=== PATIENT | male | born 1945 | race Caucasian/White ===

== ENCOUNTER 2020-03-10 13:30 | Outpatient (CLI) | payer OTHER, SELFPAY ==
--- NOTE | 2020-03-10 13:37 | MR_ITS ---
WS: [id number] INDICATION: Prostate evaluation TECHNIQUE: MRI the pelvis without and with gadolinium enhancement with attention to the prostate. Cor onal T1 STIR and post gadolinium imaging. Axial T1 and T2 and postgadolinium imaging. Sagittal T2 and postgadolinium imaging with fat saturation technique. FINDINGS: Markedly enlarged prostate measuring 5.8 cm x 7.1 x 6.6 cm AP by transverse by craniocaudal . Heterogeneous enhancement with associated T2 hyperintense cystic change within the prostate. Prosta te appears well encapsulated. Seminal vesicles appear normal. Indentation on the bladder with evidenc e of bladder outlet obstruction. Diffuse thickening of the bladder wall. No pelvic lymphadenopathy. No inguinal lymphadenopathy. Normal bone marrow signal in the bony pelvis and sacrum. Normal perirectal fat. No iliac chain lymphadenopathy. Normal bone marrow signal in the s acrum and lower lumbar spine. MR/MR pelvis wo/w con [id number] IMPRESSION: 1. Markedly enlarged heterogeneously enhancing prostate measuring 5.8 x 7.1 x 6.6 cm. Recommend correlation for PSA. Findings suspicious for hyperplasia/neop lasia. 2. Evidence of bladder outlet obstruction with diffuse bladder wall thickening . 3. No perirectal, pelvic or inguinal lymphadenopathy. 4. Normal bone marrow signal in the visualized bony structures.
== END 2020-03-10 13:31 | disposition home or self-care (01) ==
LOC: RADWPI 13:36
PROVIDERS: Visit Provider Family Medicine
DX: Z01.89 Encounter for other specified special examinations (principal); N40.0 Benign prostatic hyperplasia without lower urinary tract symptoms
CPT/HCPCS: 72197; A9579

== ENCOUNTER 2021-08-12 09:55 | Outpatient (CLI) | payer OTHER, SELFPAY ==
--- NOTE | 2021-08-12 10:07 | CT_ITS ---
WS: [id number] CT ABDOMEN AND PELVIS NONCONTRAST HISTORY: PELVIC and PERINEAL PAIN TECHNIQUE: Imaging performed through the abdomen and pelvis. Coronal and sagittal reformats are submi tted. All CT scans at [facility] use at least one of these dose optimization techniques: auto mated exposure control; mA and/or kV adjustment per patient size (includes targeted exams where dose is matched to clinical indication); or iterative reconstruction. DLP: 1139.48 mGy.cm COMPARISON: MRI 03/10/2020 There is motion artifact due to breathing on this examination. Lower thorax: Pulmonary hyperexpansion. Benign granuloma LEFT lower lobe. Heart is moderately enlarge d. Small hiatal hernia. Liver: Normal size and attenuation on this unenhanced study. No bile duct dilatation is appreciated. Gallbladder: Normal gallbladder. Pancreas: Mild atrophy of the pancreas. Suspicious for 10 mm cystic nodule involving the pancreatic t ail. This cannot be further evaluated on this examination without IV contrast. No adjacent inflammati on. Spleen: Normal. Adrenal glands: Normal. No mass. Right kidney: Normal size kidney. Small extrarenal pelvis. No obstruction. Left kidney: Normal size kidney. No obstruction. Very small extrarenal pelvis. Aorta: Mild atherosclerosis abdominal aorta with no aneurysm. No free fluid, intraperitoneal air or significant lymphadenopathy. GI tract: Nondistended stomach. No small bowel obstruction. Moderate fecal retention and constipation . Small portion of the appendix is visualized and is normal. No inflammatory changes in the RIGHT low er quadrant. Numerous diverticula sigmoid colon. No obstruction. There is very mild rectal wall thick ening measuring up to 7 mm. This is circumferential and not focal. No significant amount of inflammat ion in the mesorectal fat. Abdominal wall: Negative. No hernia. Pelvis: Moderately distended urinary bladder. The prostate gland is enlarged and lobulated and extend ing into the urinary bladder. Prostate measures at least 6.5 x 7.3 cm and extends over length of 7.4 cm. Ureters into chest lateral to the prostate gland. No adenopathy. Osseous structures: Mild anterior wedging of L4. No destructive bone lesions. CT/CT abdomen pelvis wo con [id number] IMPRESSION: 1. Markedly enlarged lobulated prostate gland encroaches into the base of the urinary bladder. Prostate measures 6.5 x 7.3 x 7.4 cm. 2. No renal or ureteral obstruction. 3. Mild diffuse constipation. 4. There is very mild circumferential rectal wall thickening which is not foca l. May be due to proctitis. 5. Mild constipation and numerous diverticula without acute diverticulitis. 6. Nonspecific 10 mm cystic nodule in the pigtail of the pancreas. May be a mu cinous or serous cystadenoma. Serial CT evaluation should be performed to evalu ate for stability. CT evaluation with IV contrast should be obtained.
[2021-08-12] MEDS: iohexol 300 mg/mL 50 mL Btl PO (10:59)
== END 2021-08-12 09:56 | disposition home or self-care (01) ==
LOC: RAD 09:57
PROVIDERS: Visit Provider Family Medicine
DX: N40.1 Benign prostatic hyperplasia with lower urinary tract symptoms (principal); K59.00 Constipation, unspecified; R91.1 Solitary pulmonary nodule; R93.3 Abnormal findings on diagnostic imaging of other parts of digestive tract; R10.2 Pelvic and perineal pain
CPT/HCPCS: 74176

== ENCOUNTER 2021-09-21 07:47 | Outpatient (CLI) | payer OTHER, SELFPAY ==
--- NOTE | 2021-09-21 08:01 | CT_ITS ---
WS: [id number] CT ABDOMEN NON-CONTRAST PLUS CONTRAST TECHNIQUE: Noncontrast CT of the abdomen and contrast-enhanced CT of the abdomen with coronal and sag ittal reformatted images. CLINICAL INFORMATION: CYST OF PANCREAS COMPARISON: CT August 12, 2021 DLP: 1670.[address] scans at [facility] use at least one of these dose optimization techniques: automated e xposure control; mA and/or kV adjustment per patient size (includes targeted exams where dose is matc hed to clinical indication); or iterative reconstruction. FINDINGS: Stable low-attenuation lesion in the tail the pancreas is unchanged from previous measuring 10 mm. Th is may represent mucinous/serous cystadenoma versus sidebranch IPMN. Recommend continued surveillance with six-month follow-up. No other significant changes compared to previous. No obstructing renal or ureteral calculi. Slight atelectasis in the lung bases. Calcified granuloma LEFT lower lobe. Liver appears normal. Norm al gallbladder. Normal portal vein and splenic vein. Fatty atrophy of the pancreas. Normal GE junctio n. Adrenal glands are normal. Normal renal parenchymal enhancement. No hydronephrosis. Tiny RIGHT susanne al cyst. Normal caliber abdominal aorta. No periaortic lymphadenopathy. Mild lumbar curve. Disc space narrowin g L4-L5 with vacuum disc phenomenon. Mild compression deformities at L4 and L5 unchanged. IMPRESSION: 1. Previous described 10 mm low-attenuation lesion tail of the pancreas is unchanged. Recommend cont inued surveillance. Recommend 6-12 month follow-up with contrast-enhanced CT abdomen pelvis. 2. No other significant changes compared to previous. 3. No abdominal lymphadenopathy. 4. Tiny fat-containing hernia. 5. No hydronephrosis in either kidney. 6. Normal caliber abdominal aorta.
[2021-09-21 09:31] LABS: Blood Urea Nitrogen 15 mg/dL (8-23)
[2021-09-21] MEDS: iohexol 300 mg/mL 100 mL Btl IV (09:37)
== END 2021-09-21 07:48 | disposition home or self-care (01) ==
PROVIDERS: Visit Provider Family Medicine
DX: K86.2 Cyst of pancreas (principal)
CPT/HCPCS: 74170; 82565; 84520